=== PATIENT | male | born 1965 | race Caucasian/White ===

== ENCOUNTER 2021-12-12 21:20 | Inpatient (IN) | payer OTHER ==
[~2021-12-12] VITALS: Ht 175.3 cm; Wt 127.0 kg
[2021-12-12 21:42] LABS: HEMOGLOBIN 15.1 gm/dl (14.0-17.5); RED BLOOD COUNT 5.12 M/UL (4.20-5.50); WHITE BLOOD COUNT 15.4 K/UL (4.5-11.0)
[2021-12-12 22:10] LABS: BUN/CREATININE RATIO 8 (0-10)
[2021-12-13] MEDS ORDERED: AMLODIPINE BESY10 MG PO (12:48)
[2021-12-13] MEDS ORDERED: POTASSIUM CHLO20 ME1 PO (12:49)
[2021-12-13] MEDS ORDERED: METFORMIN HCL500 MG PO (12:49)
[2021-12-13] MEDS ORDERED: LISINOPRIL10 MG PO (12:50)
[2021-12-13] MEDS ORDERED: PRAVASTATIN SOD10 MG PO (12:50)
[2021-12-13] MEDS ORDERED: METOPROLOL TART25 MG PO (12:51)
[2021-12-14] MEDS ORDERED: CYCLOBENZAPRINE10 MG PO (12:17)
[2021-12-14] MEDS ORDERED: HYDROCODON-ACE1 EAC4 PO (12:17)
== END 2021-12-14 13:34 | disposition home or self-care (01) | DRG 200 ==
LOC: ER1 21:20 → CDU 23:33 → MED SURG 4 12-13 11:12
PROVIDERS: Student in an Organized Health Care Education/Training Program; ADMIT Surgery
DX: S27.0XXA Traumatic pneumothorax, initial encounter (principal); S22.42XA Multiple fractures of ribs, left side, initial encounter for closed fracture; Z20.822 Contact with and (suspected) exposure to COVID-19; I10 Essential (primary) hypertension; E11.9 Type 2 diabetes mellitus without complications; Z83.3 Family history of diabetes mellitus
CPT/HCPCS: 70450; 71045; 71260; 72125; 72128; 72131; 80053; 82550; 82553; 84484; 85025; 86850; 86900; 86901; 90471; 90715; 94760; 99285; G0378; Q9967

== ENCOUNTER 2022-01-10 13:21 | Emergency (ER) | payer BC ==
[~2022-01-10 13:21] MED LIST: AMLODIPINE BESY10 MG PO; CYCLOBENZAPRINE10 MG PO; HYDROCODON-ACE1 EAC4 PO; LISINOPRIL10 MG PO; METFORMIN HCL500 MG PO; METOPROLOL TART25 MG PO; POTASSIUM CHLO20 ME1 PO; PRAVASTATIN SOD10 MG PO
[2022-01-10 14:20] LABS: HEMOGLOBIN 11.6 gm/dl (14.0-17.5); RED BLOOD COUNT 4.17 M/UL (4.20-5.50); WHITE BLOOD COUNT 13.3 K/UL (4.5-11.0)
[2022-01-10 15:07] LABS: BUN/CREATININE RATIO 20 (0-10)
== END 2022-01-10 16:57 | disposition short-term general hospital (02) ==
LOC: ER1 13:21
PROVIDERS: Student in an Organized Health Care Education/Training Program
DX: J90 Pleural effusion, not elsewhere classified (principal); J94.2 Hemothorax; E11.9 Type 2 diabetes mellitus without complications; E78.5 Hyperlipidemia, unspecified; I10 Essential (primary) hypertension; F17.210 Nicotine dependence, cigarettes, uncomplicated; Z51.81 Encounter for therapeutic drug level monitoring
CPT/HCPCS: 32551; 71045; 80053; 85025; 85610; 99284; 99285; J2704

== ENCOUNTER → 2022-03-21 | Outpatient (CLI) | payer BC | LOC: EXRD 09:38 | DX: J94.2 Hemothorax (principal); R91.8 Other nonspecific abnormal finding of lung field | CPT/HCPCS: 71046 ==